=== PATIENT | male | born 1990 | race Caucasian/White ===

== ENCOUNTER 2017-05-26 21:54 | Emergency (ER) | payer MEDICAID, OTHER ==
[2017-05-26 22:04] VITALS: BP 157/101; PULSE 91; RESP 18; TEMP 97.3; O2SAT 97
--- NOTE | 2017-05-26 22:12 | EDPHY ---
H & P Stated Complaint: need zyprexa (last dose last night), wellbutrin, neurontin Time Seen by Provider: 05/26/17 22:11 HPI/ROS: HPI CHIEF COMPLAINT: Medication refill HISTORY OF PRESENT ILLNESS: This patient very pleasant 27-year-old male who presents emergency room requesting medication refills specifically is requesting 450 mg Wellbutrin, 3800 mg of gabapentin and his Xanax. He states he has been off his medications for months. He has had a detention house. He takes his medications for anxiety and bipolar. He has been off these medications for months and decided come to the emergency room this evening to have refill. Past Medical History: Anxiety, bipolar Past Surgical History: Noncontributory Social History: Denies daily use of drugs alcohol tobacco products. Family History: Noncontributory. ROS REVIEW OF SYSTEMS: A comprehensive 10 point review of systems is otherwise negative aside from elements mentioned in the history of present illness. Exam Constitutional appears well nontoxic, not anxious, resting comfortably, triage nursing summary reviewed, vital signs reviewed, awake/alert. Eyes normal conjunctivae and sclera, EOMI, PERRLA. HENT normal inspection, atraumatic, moist mucus membranes, no epistaxis, neck supple/ no meningismus, no raccoon eyes. Respiratory clear to auscultation bilaterally, normal breath sounds, no respiratory distress, no wheezing. Cardiovascular rate normal, regular rhythm, no murmur, no edema, distal pulses normal. Gastrointestinal soft, non-tender, no rebound, no guarding, normal bowel sounds, no distension, no pulsatile mass. Genitourinary no CVA tenderness. Musculoskeletal no midline vertebral tenderness, full range of motion, no calf swelling, no tenderness of extremities, no meningismus, good pulses, neurovascularly intact. Skin pink, warm, & dry, no rash, skin atraumatic. Neurologic awake, alert and oriented x 3, AAOx3, moves all 4 extremities equally, motor intact, sensory intact, CN II-XII intact, normal cerebellar, normal vision, normal speech. Psychiatric normal mood/affect. Heme/Lymph/Immune no lymphadenopathy. Differential Diagnosis: Includes but is not limited to in a particular order, medication refill, history of anxiety and bipolar disorder. Medical Decision Making: Plan for this patient I will refill his gabapentin starting dose 300 mg at bedtime. Additionally I will refill his Wellbutrin at 100 mg. I do not feel comfortable starting him on huge doses of gabapentin and Wellbutrin. When he has been off them for months. Additionally explained I will not prescribe him Xanax he will need to see his mental health physician to have these medications adjusted and represcribed. He is fine with this plan. He denies wanting to hurt himself or anybody else. Denies suicidal ideation or hallucination. Source: Patient - Personal History Current Tetanus/Diphtheria Vaccine: Yes Current Tetanus Diphtheria and Acellular Pertussis (TDAP): Yes - Medical/Surgical History Other PMH: knee sgy; OCD, depression, anxiety, bipolar - Social History Smoking Status: Current every day smoker Constitutional: Initial Vital Signs Temperature (C) 36.3 C 05/26/17 22:00 Heart Rate 91 05/26/17 22:00 Respiratory Rate 18 05/26/17 22:00 Blood Pressure 157/101 H 05/26/17 22:00 O2 Sat (%) 97 05/26/17 22:00 O2 Delivery Mode Room Air Allergies/Adverse Reactions: Sulfa (Sulfonamide Antibiotics) Allergy (Severe, Verified 08/28/11 19:19) CARRIES EPI PEN Home Medications: Medication Instructions Recorded Olanzapine [Zyprexa] 2.5 mg PO DAILY 08/28/11 GABAPENTIN 05/26/17 Gabapentin [Neurontin 300 MG (*)] 300 mg PO HS #10 cap 05/26/17 Wellbutrin Sr 05/26/17 buPROPion [Wellbutrin 100mg (*)] 100 mg PO TID #30 tab 05/26/17 Departure - Departure Disposition: Home, Routine, Self-Care Clinical Impression: Medication refill Condition: Good Instructions: Medicine Refill (ED) Referrals: EMIL ALEXANDRA [Other] - As per Instructions Prescriptions: buPROPion [Wellbutrin 100mg (*)] 100 mg PO TID #30 tab Gabapentin [Neurontin 300 MG (*)] 300 mg PO HS #10 cap
== END 2017-05-26 22:27 | disposition home or self-care (01) ==
DX: Z76.0 Encounter for issue of repeat prescription (principal); F17.200 Nicotine dependence, unspecified, uncomplicated